=== PATIENT | female | born 1945 | race Caucasian/White ===

== ENCOUNTER 2021-01-08 22:12 | Inpatient (IN) ==
[2021-01-09] MEDS ORDERED: 0.9 % Sodium Chloride 1,000 ML IVC ONE (01:44)
[2021-01-09] MEDS ORDERED: Isovue-370 500 ML BOTTLE IVP ONE (01:48)
[2021-01-09] MEDS ORDERED: Vancomycin (wt based) 1,000 MG VIAL IV STA (01:51)
[2021-01-09] MEDS ORDERED: Vancomycin 1,500 MG/265 ML IV.SOLN IVPB ONE (02:00)
[2021-01-09 03:20] LABS: Basophils % 0.1 %; Hematocrit 49.2 % (35.3-44.9); Hemoglobin 15.5 g/dL (11.5-15.4); Immature Granulocytes % 0.5 % (0-4); Lymphocytes # 0.4 K/mcL (0.6-4.6); Lymphocytes % 4.2 %; Mean Corpuscular HGB Conc 31.5 g/dL (31.6-35.5); Mean Corpuscular Volume 95.2 fL (83.0-100.0); Mean Platelet Volume 10.6 fL (9.4-12.4); Monocytes # 0.4 K/mcL (0.0-1.3); Monocytes % 3.8 %; Neutrophils # 8.7 K/mcL (1.6-8.9); Platelet Count 166 K/mcL (140-400); Red Blood Count 5.17 M/mcL (3.82-4.97); Red Cell Distribution Width 14.9 % (11.5-14.5); Segmented Neutrophils % 91.4 %; White Blood Count 9.5 K/mcL (4.3-11.1)
[2021-01-09 03:22] LABS: Bacteria,Urine Few per hpf (None-Few); Bilirubin,Urine Negative (Negative); Blood,Urine Small (Negative); Clarity,Urine Clear (Clear); Color,Urine Yellow (Yellow); Glucose,Urine (UA) Normal (Normal); Ketones,Urine Negative (Negative); Leukocyte Esterase,Urine Small (Negative); Mucus,Urine Few per lpf (None-Few); Nitrite,Urine Negative (Negative); Protein,Urine Trace mg/dL (Neg-Trace); Specific Gravity,Urine 1.018 (1.010-1.025); Squamous Epithelial Cell,Urine Few per hpf (None-Few); Urobilinogen,Urine Normal (Normal)
[2021-01-09 03:26] LABS: INR 1.1; Prothrombin Time 12.9 Seconds (9.4-12.1)
[2021-01-09 03:45] LABS: Alanine Aminotransferase 10 Units/L (7-52); Albumin 3.8 g/dL (3.5-5.7); Albumin/Globulin Ratio 1.1 (1.1-2.2); Alkaline Phosphatase 58 Units/L (34-104); Aspartate Amino Transferase 23 Units/L (13-39); Bilirubin,Total 0.7 mg/dL (0.3-1.0); Blood Urea Nitrogen > 130 mg/dL (8-23); Calcium 9.7 mg/dL (8.6-10.3); Carbon Dioxide 17 mEq/L (23-29); Chloride 97 mEq/L (98-107); Creatine Kinase 149 Units/L (30-223); Globulin 3.5 g/dL (2.4-3.5); Glucose 83 mg/dL (70-105); Potassium 5.6 mEq/L (3.5-5.1); Sodium 135 mEq/L (136-145); Total Protein 7.3 g/dL (6.4-8.9); Troponin I 0.28 ng/mL (< 0.04); eGFR For African Americans 9 (> 60); eGFR For Non-African Americans 8 (> 60)
[2021-01-09] MEDS ORDERED: Cefepime HCl 1,000 MG in Water for inj. (sterile) 10 ML IVP SCH (04:00)
[2021-01-09] MEDS ORDERED: 0.9 % Sodium Chloride 1,000 ML IV ONE (05:16)
[2021-01-09] MEDS ORDERED: SODIUM ZIRCONIUM CYCLOSILICATE 5 GM POWD.PACK PO SCH (06:15)
[2021-01-09] MEDS ORDERED: *HR* Heparin 5,000 UNIT/ML VIAL IVP ONE (06:41)
[2021-01-09] MEDS ORDERED: *HR* Heparin 5,000 UNIT/ML VIAL IVP PRN ×2 (06:41)
[2021-01-09] MEDS ORDERED: Melatonin 3 MG TABLET PO PRN (07:51)
[2021-01-09] MEDS ORDERED: Naloxone 0.4 MG/ML INJ IVP PRN (07:51)
[2021-01-09] MEDS ORDERED: Ondansetron 4 MG/2 ML VIAL IVP PRN (07:51)
[2021-01-09] MEDS ORDERED: Perflutren Lipid Microsphere 1.3 ML in 0.9 % Sodium Chloride 8.7 ML IVP PRN (08:04)
[2021-01-09 09:19] LABS: Adenovirus Not Detected (Not Detect); Coronavirus 229E Not Detected (Not Detect); Coronavirus HKU1 Not Detected (Not Detect); Coronavirus NL63 Not Detected (Not Detect); Coronavirus OC43 Not Detected (Not Detect); Human Metapneumovirus Not Detected (Not Detect); Human Rhinovirus/Enterovirus Not Detected (Not Detect); Influenza A Subtype 2009 H1 Not Detected (Not Detect); Influenza B Not Detected (Not Detect); Parainfluenza Virus 1 Not Detected (Not Detect); Parainfluenza Virus 2 Not Detected (Not Detect); SARS-CoV-2 Not Detected (Not Detect)
[2021-01-09 09:20] LABS: Bordetella Pertussis Not Detected (Not Detect); Chlamydophila pneumoniae Not Detected (Not Detect); Mycoplasma pneumoniae Not Detected (Not Detect); Parainfluenza Virus 3 Not Detected (Not Detect); Parainfluenza Virus 4 Not Detected (Not Detect); Respiratory Syncytial Virus Not Detected (Not Detect)
[2021-01-09] MEDS ORDERED: Ringers Solution, Lactated 1,000 ML IVC SCH (10:00)
[2021-01-09] MEDS ORDERED: Sodium Bicarbonate 75 MEQ in 0.45 % Sodium Chloride 1,000 ML IVC SCH (10:30)
[2021-01-09 10:48] LABS: INR 1.1; Prothrombin Time 12.9 Seconds (9.4-12.1)
[2021-01-09 10:52] LABS: Heparin anti-factor XA UFH < 0.04 IU/mL (0.30-0.70)
[2021-01-09] MEDS: carvediloL 6.25 MG TABLET PO SCH ×2 (12:27→17:13)
[2021-01-09] MEDS: Lactobacillus 1 EACH CAP.SPRINK PO SCH ×2 (12:28→20:10)
[2021-01-09 14:40] LABS: Hematocrit 41.1 % (35.3-44.9); Mean Corpuscular HGB Conc 31.6 g/dL (31.6-35.5); Mean Corpuscular Hemoglobin 30.1 pg (28.0-33.3); Mean Corpuscular Volume 95.1 fL (83.0-100.0); Mean Platelet Volume 10.3 fL (9.4-12.4); Platelet Count 140 K/mcL (140-400); Red Blood Count 4.32 M/mcL (3.82-4.97); Red Cell Distribution Width 14.6 % (11.5-14.5); White Blood Count 7.9 K/mcL (4.3-11.1)
[2021-01-09 14:57] LABS: Estimated Average Glucose 111 mg/dl; Hemoglobin A1C 5.5 %
[2021-01-09 15:06] LABS: Chol/HDL Ratio 4.6 (0-4.9)
[2021-01-09] MEDS: Heparin 25,000UNIT/250ML 1/2NS 25,000 UNIT/250 ML IV.SOLN IVC SCH (15:06)
[2021-01-09 15:11] LABS: Troponin I 0.27 ng/mL (< 0.04)
[2021-01-09 15:19] LABS: Thyroid Stimulating Hormone 14.987 mcIU/mL (0.340-5.600)
[2021-01-09] MEDS: Sodium Bicarbonate 75 MEQ in 0.45 % Sodium Chloride 1,000 ML IVC SCH (16:30)
[2021-01-09] MEDS: Piperacillin/Tazobactam 3.375 GM in 0.9 % Sodium Chloride Mini Bag 100 ML IVPB SCH (17:14)
[2021-01-09 19:05] LABS: Sodium, Urine 22.3 mEq/L
[2021-01-09] MEDS ORDERED: Doxycycline 100 MG CAPSULE PO SCH (21:00)
[2021-01-10] MEDS: Piperacillin/Tazobactam 3.375 GM in 0.9 % Sodium Chloride Mini Bag 100 ML IVPB SCH (05:30)
[2021-01-10] MEDS ORDERED: Cefepime HCl 2,000 MG in Water for inj. (sterile) 20 ML IVP SCH (08:37)
[2021-01-10] MEDS: Lactobacillus 1 EACH CAP.SPRINK PO SCH ×2 (09:22→20:04)
[2021-01-10] MEDS: carvediloL 6.25 MG TABLET PO SCH ×2 (09:23→17:30)
[2021-01-10] MEDS: Aspirin Enteric Coated 81 MG Tablet PO SCH (09:23)
[2021-01-10] MEDS: Sodium Bicarbonate 75 MEQ in 0.45 % Sodium Chloride 1,000 ML IVC SCH (09:28)
[2021-01-10 10:43] LABS: Calcium 8.2 mg/dL (8.6-10.3); Magnesium 2.5 mg/dL (1.6-2.6); Phosphorous 5.1 mg/dL (2.7-4.5); Potassium 3.2 mEq/L (3.5-5.1)
[2021-01-10] MEDS: *HR* Heparin 5,000 UNIT/ML VIAL SQ SCH (18:31)
[2021-01-10] MEDS: Ranolazine 500 MG TAB.ER.12H PO SCH (20:04)
[2021-01-11] MEDS: Sodium Bicarbonate 75 MEQ in 0.45 % Sodium Chloride 1,000 ML IVC SCH ×3 (02:34→18:59)
[2021-01-11] MEDS: *HR* Heparin 5,000 UNIT/ML VIAL SQ SCH ×2 (05:40→18:28)
[2021-01-11] MEDS: Heparin 25,000UNIT/250ML 1/2NS 25,000 UNIT/250 ML IV.SOLN IVC SCH (07:24)
[2021-01-11] MEDS: carvediloL 6.25 MG TABLET PO SCH ×2 (09:31→18:28)
[2021-01-11] MEDS: Lactobacillus 1 EACH CAP.SPRINK PO SCH ×2 (09:31→22:27)
[2021-01-11] MEDS: Aspirin Enteric Coated 81 MG Tablet PO SCH (09:31)
[2021-01-11] MEDS: Ranolazine 500 MG TAB.ER.12H PO SCH ×2 (09:31→22:26)
[2021-01-11 11:19] LABS: Basophils % 0.2 %; Eosinophils # 0.1 K/mcL (0.0-0.6); Hematocrit 30.5 % (35.3-44.9); Immature Granulocytes % 0.2 % (0-4); Lymphocytes # 0.3 K/mcL (0.6-4.6); Lymphocytes % 6.3 %; Mean Corpuscular HGB Conc 32.8 g/dL (31.6-35.5); Mean Corpuscular Hemoglobin 29.9 pg (28.0-33.3); Mean Corpuscular Volume 91.3 fL (83.0-100.0); Mean Platelet Volume 11.2 fL (9.4-12.4); Monocytes # 0.2 K/mcL (0.0-1.3); Monocytes % 4.3 %; Neutrophils # 3.8 K/mcL (1.6-8.9); Platelet Count 112 K/mcL (140-400); Red Blood Count 3.34 M/mcL (3.82-4.97); Red Cell Distribution Width 14.6 % (11.5-14.5); White Blood Count 4.4 K/mcL (4.3-11.1)
[2021-01-11 11:37] LABS: Calcium 7.8 mg/dL (8.6-10.3); Potassium 3.1 mEq/L (3.5-5.1)
[2021-01-11] MEDS: Potassium Chloride Elixir 20 MEQ/15 ML UDC PO SCH (14:19)
[2021-01-11] MEDS ORDERED: Potassium Chloride Elixir 20 MEQ/15 ML UDC PO ONE (14:54)
[2021-01-12] MEDS: *HR* Heparin 5,000 UNIT/ML VIAL SQ SCH ×2 (06:07→18:40)
[2021-01-12 06:43] LABS: Eosinophils # 0.1 K/mcL (0.0-0.6); Eosinophils % 3.3 %; Hematocrit 27.4 % (35.3-44.9); Hemoglobin 8.9 g/dL (11.5-15.4); Immature Granulocytes % 0.3 % (0-4); Lymphocytes # 0.4 K/mcL (0.6-4.6); Lymphocytes % 8.9 %; Mean Corpuscular HGB Conc 32.5 g/dL (31.6-35.5); Mean Corpuscular Hemoglobin 30.2 pg (28.0-33.3); Mean Corpuscular Volume 92.9 fL (83.0-100.0); Mean Platelet Volume 11.1 fL (9.4-12.4); Monocytes # 0.2 K/mcL (0.0-1.3); Monocytes % 6.1 %; Neutrophils # 3.2 K/mcL (1.6-8.9); Platelet Count 112 K/mcL (140-400); Red Blood Count 2.95 M/mcL (3.82-4.97); Red Cell Distribution Width 14.6 % (11.5-14.5); Segmented Neutrophils % 81.4 %; White Blood Count 3.9 K/mcL (4.3-11.1)
[2021-01-12 07:05] LABS: Calcium 7.6 mg/dL (8.6-10.3); Potassium 3.7 mEq/L (3.5-5.1)
[2021-01-12] MEDS: Lactobacillus 1 EACH CAP.SPRINK PO SCH ×2 (08:54→19:37)
[2021-01-12] MEDS: Aspirin Enteric Coated 81 MG Tablet PO SCH (08:54)
[2021-01-12] MEDS: carvediloL 6.25 MG TABLET PO SCH ×2 (08:54→18:35)
[2021-01-12] MEDS: Ranolazine 500 MG TAB.ER.12H PO SCH ×2 (08:54→19:37)
[2021-01-12] MEDS: Potassium Chloride Elixir 20 MEQ/15 ML UDC PO SCH (08:55)
[2021-01-12] MEDS: Sodium Bicarbonate 75 MEQ in 0.45 % Sodium Chloride 1,000 ML IVC SCH (09:29)
[2021-01-12] MEDS ORDERED: Ondansetron 4 MG/2 ML VIAL IVP PRN (11:34)
[2021-01-12] MEDS ORDERED: *HR* FentaNYL (PF) 100 MCG/2 ML VIAL IVP PRN (11:34)
[2021-01-12] MEDS ORDERED: *HR* HYDROmorphone PF 0.5 MG/0.5 ML SYRINGE IVP PRN (11:34)
[2021-01-12 13:40] LABS: % Iron Saturation 26 % (15-50); Iron 37 mcg/dL (50-170); Transferrin 103 mg/dL (203-362)
[2021-01-12 13:44] LABS: Ferritin 228 ng/mL (10-120)
[2021-01-12] MEDS ORDERED: Ondansetron 4 MG/2 ML VIAL ONE (14:35)
[2021-01-12] MEDS ORDERED: *HR* FentaNYL (PF) 100 MCG/2 ML VIAL ONE (14:35)
[2021-01-12] MEDS ORDERED: *HR* Propofol 200 MG/20 ML VIAL IVP ONE (14:35)
[2021-01-12] MEDS ORDERED: *HR* Succinylcholine 200 MG/10 ML VIAL IVP ONE (14:35)
[2021-01-12] MEDS ORDERED: *HR* Phenylephrine 10 MG/ML VIAL ONE (14:35)
[2021-01-12] MEDS ORDERED: Lidocaine HCL 4 ML Topical Solution (Laryng-O-Jet Kit Sterile Pak) TP ONE (14:35)
[2021-01-12] MEDS ORDERED: Lidocaine -MPF 2% 2 ML VIAL ONE (14:35)
[2021-01-12] MEDS ORDERED: *HR* Midazolam HCl 2 MG/2 ML VIAL ONE (14:35)
[2021-01-12] MEDS ORDERED: *HR* Rocuronium Bromide 50 MG/5 ML VIAL ONE (14:35)
[2021-01-12] MEDS ORDERED: Bupivacaine/Clonidine Syringe 20 ML, Syringe LUER-LOK 1 EACH TP ONE (14:45)
[2021-01-12] MEDS ORDERED: Neostigmine Methylsulfate 3 MG/3 ML SYRINGE ONE (16:25)
[2021-01-12] MEDS ORDERED: flumazeniL 0.5 MG/5 ML VIAL IVP ONE (16:49)
[2021-01-12] MEDS ORDERED: Ringers Solution, Lactated 0 ML ONE (17:20)
[2021-01-12] MEDS ORDERED: 0.9 % Sodium Chloride 500 ML ONE (17:21)
[2021-01-13 05:14] LABS: Hematocrit 30.5 % (35.3-44.9); Hemoglobin 9.7 g/dL (11.5-15.4); Immature Granulocytes % 0.2 % (0-4); Lymphocytes # 0.3 K/mcL (0.6-4.6); Lymphocytes % 6.3 %; Mean Corpuscular HGB Conc 31.8 g/dL (31.6-35.5); Mean Corpuscular Hemoglobin 29.9 pg (28.0-33.3); Mean Corpuscular Volume 94.1 fL (83.0-100.0); Mean Platelet Volume 11.3 fL (9.4-12.4); Monocytes # 0.1 K/mcL (0.0-1.3); Monocytes % 1.7 %; Neutrophils # 3.8 K/mcL (1.6-8.9); Platelet Count 122 K/mcL (140-400); Red Blood Count 3.24 M/mcL (3.82-4.97); Red Cell Distribution Width 14.8 % (11.5-14.5); Segmented Neutrophils % 91.8 %; White Blood Count 4.1 K/mcL (4.3-11.1)
[2021-01-13] MEDS: *HR* Heparin 5,000 UNIT/ML VIAL SQ SCH ×2 (05:28→16:32)
[2021-01-13] MEDS: Sodium Bicarbonate 75 MEQ in 0.45 % Sodium Chloride 1,000 ML IVC SCH (05:28)
[2021-01-13 05:31] LABS: Calcium 6.3 mg/dL (8.6-10.3); Potassium 3.4 mEq/L (3.5-5.1)
[2021-01-13] MEDS ORDERED: *HR* FentaNYL (PF) 100 MCG/2 ML VIAL IVP PRN (07:27)
[2021-01-13] MEDS ORDERED: Sodium Bicarbonate 75 MEQ in 0.45 % Sodium Chloride 1,000 ML IVC SCH (07:27)
[2021-01-13] MEDS ORDERED: Perflutren Lipid Microsphere 1.3 ML in 0.9 % Sodium Chloride 8.7 ML IVP PRN (07:27)
[2021-01-13] MEDS ORDERED: Melatonin 3 MG TABLET PO PRN (07:27)
[2021-01-13] MEDS ORDERED: Ondansetron 4 MG/2 ML VIAL IVP PRN (07:27)
[2021-01-13] MEDS ORDERED: Naloxone 0.4 MG/ML INJ IVP PRN (07:27)
[2021-01-13] MEDS ORDERED: carvediloL 6.25 MG TABLET PO SCH ×2 (08:00→10:30)
[2021-01-13] MEDS ORDERED: Cefepime HCl 1,000 MG in 0.9 % Sodium Chloride Mini Bag 100 ML IVPB SCH (09:00)
[2021-01-13] MEDS: Aspirin Enteric Coated 81 MG Tablet PO SCH (09:37)
[2021-01-13] MEDS: Lactobacillus 1 EACH CAP.SPRINK PO SCH ×2 (09:37→20:44)
[2021-01-13] MEDS: Ranolazine 500 MG TAB.ER.12H PO SCH ×2 (09:38→20:44)
[2021-01-13] MEDS: Cyanocobalamin (B-12) 1,000 MCG TABLET PO SCH (12:02)
[2021-01-13] MEDS ORDERED: cefTRIAXone 1,000 MG in 0.9 % Sodium Chloride Mini Bag 100 ML IVPB ONE (15:11)
[2021-01-14 03:01] LABS: Eosinophils # 0.1 K/mcL (0.0-0.6); Hematocrit 28.2 % (35.3-44.9); Hemoglobin 9.2 g/dL (11.5-15.4); Immature Granulocytes % 0.4 % (0-4); Lymphocytes # 0.4 K/mcL (0.6-4.6); Lymphocytes % 7.8 %; Mean Corpuscular HGB Conc 32.6 g/dL (31.6-35.5); Mean Corpuscular Hemoglobin 30.5 pg (28.0-33.3); Mean Corpuscular Volume 93.4 fL (83.0-100.0); Mean Platelet Volume 11.2 fL (9.4-12.4); Monocytes # 0.3 K/mcL (0.0-1.3); Neutrophils # 4.3 K/mcL (1.6-8.9); Platelet Count 149 K/mcL (140-400); Red Blood Count 3.02 M/mcL (3.82-4.97); Red Cell Distribution Width 15.3 % (11.5-14.5); Segmented Neutrophils % 85.8 %
[2021-01-14 03:14] LABS: VBG Ionized Calcium 1.13 mmol/L (1.15-1.35)
[2021-01-14 03:26] LABS: Calcium 6.8 mg/dL (8.6-10.3); Potassium 3.2 mEq/L (3.5-5.1)
[2021-01-14] MEDS: *HR* Heparin 5,000 UNIT/ML VIAL SQ SCH ×2 (05:18→18:53)
[2021-01-14] MEDS ORDERED: Potassium Chloride Elixir 20 MEQ/15 ML UDC PO ONE (07:53)
[2021-01-14] MEDS: Ranolazine 500 MG TAB.ER.12H PO SCH ×2 (08:42→21:04)
[2021-01-14] MEDS: Aspirin Enteric Coated 81 MG Tablet PO SCH (08:42)
[2021-01-14] MEDS: Lactobacillus 1 EACH CAP.SPRINK PO SCH ×2 (08:42→21:04)
[2021-01-14] MEDS: cefTRIAXone 1,000 MG in 0.9 % Sodium Chloride Mini Bag 100 ML IVPB SCH (08:42)
[2021-01-14] MEDS: Cyanocobalamin (B-12) 1,000 MCG TABLET PO SCH (08:43)
[2021-01-15 05:08] LABS: Calcium 7.7 mg/dL (8.6-10.3)
[2021-01-15] MEDS: *HR* Heparin 5,000 UNIT/ML VIAL SQ SCH ×2 (06:08→16:32)
[2021-01-15] MEDS: Lactobacillus 1 EACH CAP.SPRINK PO SCH ×2 (09:04→20:42)
[2021-01-15] MEDS: cefTRIAXone 1,000 MG in 0.9 % Sodium Chloride Mini Bag 100 ML IVPB SCH (09:04)
[2021-01-15] MEDS: Cyanocobalamin (B-12) 1,000 MCG TABLET PO SCH (09:04)
[2021-01-15] MEDS: Aspirin Enteric Coated 81 MG Tablet PO SCH (09:04)
[2021-01-15] MEDS: Ranolazine 500 MG TAB.ER.12H PO SCH ×2 (09:04→20:42)
[2021-01-15] MEDS: 0.9 % Sodium Chloride 1,000 ML IVC SCH (12:32)
[2021-01-16] MEDS: 0.9 % Sodium Chloride 1,000 ML IVC SCH ×2 (00:30→20:58)
[2021-01-16 05:13] LABS: Potassium 4.4 mEq/L (3.5-5.1)
[2021-01-16] MEDS: *HR* Heparin 5,000 UNIT/ML VIAL SQ SCH ×2 (05:40→18:27)
[2021-01-16] MEDS: cefTRIAXone 1,000 MG in 0.9 % Sodium Chloride Mini Bag 100 ML IVPB SCH (08:57)
[2021-01-16] MEDS: Lactobacillus 1 EACH CAP.SPRINK PO SCH ×2 (08:58→19:48)
[2021-01-16] MEDS: Aspirin Enteric Coated 81 MG Tablet PO SCH (08:58)
[2021-01-16] MEDS: Ranolazine 500 MG TAB.ER.12H PO SCH ×2 (08:59→19:47)
[2021-01-16] MEDS: Cyanocobalamin (B-12) 1,000 MCG TABLET PO SCH (08:59)
[2021-01-17] MEDS: *HR* Heparin 5,000 UNIT/ML VIAL SQ SCH ×2 (05:08→17:28)
[2021-01-17 05:19] LABS: Calcium 7.8 mg/dL (8.6-10.3); Potassium 4.2 mEq/L (3.5-5.1)
[2021-01-17] MEDS: Aspirin Enteric Coated 81 MG Tablet PO SCH (09:21)
[2021-01-17] MEDS: Lactobacillus 1 EACH CAP.SPRINK PO SCH ×2 (09:21→21:21)
[2021-01-17] MEDS: Ranolazine 500 MG TAB.ER.12H PO SCH ×2 (09:21→21:21)
[2021-01-17] MEDS: NIFEdipine XL (24 HR) 30 MG TAB.ER.24 PO SCH (09:21)
[2021-01-17] MEDS: Cyanocobalamin (B-12) 1,000 MCG TABLET PO SCH (09:21)
[2021-01-17] MEDS: cefTRIAXone 1,000 MG in 0.9 % Sodium Chloride Mini Bag 100 ML IVPB SCH (09:22)
[2021-01-17] MEDS: 0.9 % Sodium Chloride 1,000 ML IVC SCH (19:40)
[2021-01-18 02:18] LABS: Calcium 7.7 mg/dL (8.6-10.3)
[2021-01-18] MEDS: *HR* Heparin 5,000 UNIT/ML VIAL SQ SCH ×2 (05:34→17:24)
[2021-01-18] MEDS: cefTRIAXone 1,000 MG in 0.9 % Sodium Chloride Mini Bag 100 ML IVPB SCH (10:03)
[2021-01-18] MEDS: Cyanocobalamin (B-12) 1,000 MCG TABLET PO SCH (10:03)
[2021-01-18] MEDS: Ranolazine 500 MG TAB.ER.12H PO SCH (10:03)
[2021-01-18] MEDS: Lactobacillus 1 EACH CAP.SPRINK PO SCH (10:04)
[2021-01-18] MEDS: NIFEdipine XL (24 HR) 30 MG TAB.ER.24 PO SCH (10:04)
[2021-01-18] MEDS: Aspirin Enteric Coated 81 MG Tablet PO SCH (10:04)
[2021-01-18 14:24] VITALS: BP 125/77; PULSE 80; TEMP 97.7; O2SAT 94
== END 2021-01-18 19:03 | DRG 570 ==
LOC: EMEROOARM 22:12 → 2ANU 22:12 → SUATTDRO 01-09 08:08 → OBSVTOIN 01-09 08:08 → 2ANU 01-09 12:13
PROVIDERS: ADMIT Internal Medicine; ATTEND Internal Medicine